=== PATIENT | male | born 1970 | race Caucasian/White ===

== ENCOUNTER → 2020-11-01 | Outpatient (CLI) | payer OTHER | LOC: KOH-I 15:02 | DX: M25.552 Pain in left hip (principal); M16.12 Unilateral primary osteoarthritis, left hip | CPT/HCPCS: 73502 ==

== ENCOUNTER 2021-05-27 01:50 | Emergency (ER) | payer OTHER ==
[2021-05-27 02:47] LABS: HEMOGLOBIN 15.2 gm/dl (14.0-17.5); RED BLOOD COUNT 5.23 M/UL (4.20-5.50); WHITE BLOOD COUNT 10.2 K/UL (4.5-11.0)
[2021-05-27 02:49] LABS: BUN/CREATININE RATIO 12 (0-10)
== END 2021-05-27 06:23 | disposition home or self-care (01) ==
LOC: ER1 01:50
PROVIDERS: Physician Assistant
DX: R16.1 Splenomegaly, not elsewhere classified (principal); I10 Essential (primary) hypertension; Z88.5 Allergy status to narcotic agent
CPT/HCPCS: 80053; 81001; 83605; 83690; 85025; 87086; 96374; 96375; 99284; J1885; J2405; Q9967

== ENCOUNTER → 2021-12-02 | Outpatient (CLI) | payer OTHER | LOC: KOH-I 08:43 | DX: R07.9 Chest pain, unspecified (principal) | CPT/HCPCS: 71046 ==